=== PATIENT | male | born 1985 | race Caucasian/White ===

== ENCOUNTER 2021-08-09 10:03 | Emergency (ER) | payer OTHER, SELFPAY ==
[~2021-08-09 10:03] MED LIST: BACTRIM DS TAB1 EACH PO; IBU800 MG PO; KEFLEX CAP 500500 MG PO
== END 2021-08-09 13:15 | disposition home or self-care (01) ==
LOC: ER1 10:03
DX: U07.1 COVID-19 (principal); Z23 Encounter for immunization; E78.5 Hyperlipidemia, unspecified; F41.9 Anxiety disorder, unspecified; I10 Essential (primary) hypertension
CPT/HCPCS: 99283; J1885; J2360; M0245